=== PATIENT | female | born 1945 | race Asian ===

== ENCOUNTER 2018-08-15 15:45 | Inpatient (IN) | payer OTHER ==
[~2018-08-15] VITALS: Ht 157.5 cm; Wt 75.7 kg
[2018-08-15 15:45] VITALS: BP_SYST 143
[2018-08-15] MEDS ORDERED: MORPHINE 2 MG/ML INJ. SYRINGE IVP ONE (17:30)
[2018-08-15] MEDS ORDERED: DIPHENHYDRAMINE INJ 50 MG/ML VIAL IVP ONE (17:30)
[2018-08-15 18:04] LABS: BASOPHILS % (AUTO) 0.8 % (0.0-2.0); EOSINOPHILS # (AUTO) 0.2 K/uL (0.0-0.4); EOSINOPHILS % (AUTO) 3.9 % (0.0-4.0); HEMATOCRIT 40.3 % (36-48); HEMOGLOBIN 12.7 g/dL (12.0-16.0); LYMPHOCYTES # (AUTO) 1.5 K/uL (1.0-5.5); LYMPHOCYTES % (AUTO) 23.9 % (20.5-51.5); MEAN CORPUSCULAR HEMOGLOBIN 28 pg (27-31); MEAN CORPUSCULAR HGB CONC 32 % (32-36); MEAN CORPUSCULAR VOLUME 90 fL (79.0-98.0); MONOCYTES # (AUTO) 0.6 K/uL (0.0-1.0); MONOCYTES % (AUTO) 9.3 % (1.7-9.3); NEUTROPHILS # (AUTO) 3.8 K/uL (1.8-7.7); NEUTROPHILS % (AUTO) 62.1 % (40.0-70.0); PLATELET COUNT (AUTO) 268 K/uL (130-430); RED BLOOD CELL COUNT(AUTO) 4.47 MIL/uL (4.2-6.2); RED CELL DISTRIBUTION WIDTH 15.2 % (9.0-15.0); WHITE BLOOD COUNT (AUTO) 6.1 K/uL (4.8-10.8)
[2018-08-15 18:14] LABS: ANION GAP 11 (5-15); CALCIUM 9.2 mg/dL (8.4-11.0); CHLORIDE 103 mmol/L (98-107); CREATININE 0.87 mg/dL (0.55-1.30); GLUCOSE 96 mg/dL (70-99); POTASSIUM 4.2 mmol/L (3.5-5.1); SODIUM SERUM 136 mmol/L (136-145); UREA NITROGEN, BLOOD 12 mg/dL (8-21)
[2018-08-15 18:16] LABS: INR 1.1 (0.8-1.2); PROTHROMBIN TIME 10.8 SECS (9.5-12.5)
[2018-08-15 18:20] LABS: ALANINE AMINOTRANSFERASE 15 U/L (12-78); ALBUMIN 3.5 g/dL (3.4-4.8); ASPARTATE AMINOTRANSFERASE 20 U/L (10-37); TOTAL BILIRUBIN 0.4 mg/dL (0.0-1.0)
[2018-08-15 19:40] LABS: BILIRUBIN,URINE NEGATIVE (NEGATIVE); BLOOD, URINE NEGATIVE (NEGATIVE); CLARITY/URINE CLEAR (CLEAR); COLOR,URINE YELLOW (YELLOW); GLUCOSE,URINE NEGATIVE (NEGATIVE); KETONES,URINE NEGATIVE (NEGATIVE); NITRITE, URINE NEGATIVE (NEGATIVE); PH,URINE 6.5 (5.0-8.0); PROTEIN URINE NEGATIVE (NEGATIVE); UROBILINOGEN,URINE 0.2 (0.2-1.0)
[2018-08-15 19:47] LABS: LEUKOCYTE ESTERASE ,URINE TRACE (NEGATIVE)
[2018-08-15 19:48] LABS: BACTERIA,URINE FEW /HPF (None Seen); MUCUS,URINE None Seen /LPF (None Seen); RBC,URINE NONE SEEN /HPF (0-3)
[2018-08-15] MEDS ORDERED: AMLO5TAB4 PO (19:49)
[2018-08-15] MEDS ORDERED: SIMV20TA6 PO (19:49)
[2018-08-15] MEDS ORDERED: NAPR-688 PO (19:49)
[2018-08-15] MEDS ORDERED: METO25TA3 PO (19:49)
[2018-08-15] MEDS ORDERED: OXYC-580 PO (19:49)
[2018-08-15] MEDS ORDERED: oxyCODONE HCL 5 MG TABLET PO PRN (20:30)
[2018-08-15 21:02] VITALS: BP_SYST 129
[2018-08-15] MEDS: KCL 20 mEq in D5/0.45NS 1000mL 1,000 ML IV SCH (22:07)
[2018-08-15] MEDS: MEGESTROL ACETATE 400 MG/10 ML UDC PO SCH (22:09)
[2018-08-15] MEDS: MORPHINE 2 MG/ML INJ. SYRINGE IVP PRN (23:29)
[2018-08-16 00:54] VITALS: BP_SYST 125
[2018-08-16] MEDS: MORPHINE 2 MG/ML INJ. SYRINGE IVP PRN ×3 (05:09→16:43)
[2018-08-16] MEDS: METOPROLOL SUCCINATE 25 MG TAB.SR.24H (TOPROL XL) PO SCH (08:42)
[2018-08-16] MEDS: MEGESTROL ACETATE 400 MG/10 ML UDC PO SCH ×2 (08:42→21:02)
[2018-08-16] MEDS: amLODIPine BESYLATE 5 MG TABLET PO SCH (08:43)
[2018-08-16] MEDS: ENOXAPARIN SODIUM 40 MG/0.4 ML SYRINGE SUBCUT SCH (08:44)
[2018-08-16] MEDS ORDERED: LevALBUTEROL HCL 1.25 MG/0.5 ML *CONC.* VIAL.NEB (XOPENEX CONC.) INH ONE (09:30)
[2018-08-16 09:52] VITALS: BP_SYST 120
[2018-08-16 12:00] VITALS: BP_SYST 129
[2018-08-16] MEDS: KCL 20 mEq in D5/0.45NS 1000mL 1,000 ML IV SCH (12:30)
[2018-08-16] MEDS: LevALBUTEROL HCL 1.25 MG/0.5 ML *CONC.* VIAL.NEB (XOPENEX CONC.) INH SCH ×2 (13:38→19:28)
[2018-08-16 16:00] VITALS: BP_SYST 115
[2018-08-16] MEDS: SIMVASTATIN 20 MG TABLET PO SCH (16:43)
[2018-08-16 19:55] VITALS: BP_SYST 124
[2018-08-17] MEDS: LevALBUTEROL HCL 1.25 MG/0.5 ML *CONC.* VIAL.NEB (XOPENEX CONC.) INH SCH ×3 (01:05→19:45)
[2018-08-17] MEDS: KCL 20 mEq in D5/0.45NS 1000mL 1,000 ML IV SCH ×3 (02:14→16:36)
[2018-08-17 02:22] VITALS: BP_SYST 140
[2018-08-17] MEDS: METOPROLOL SUCCINATE 25 MG TAB.SR.24H (TOPROL XL) PO SCH (09:09)
[2018-08-17] MEDS: MEGESTROL ACETATE 400 MG/10 ML UDC PO SCH ×2 (09:09→20:07)
[2018-08-17] MEDS: amLODIPine BESYLATE 5 MG TABLET PO SCH (09:09)
[2018-08-17] MEDS: ENOXAPARIN SODIUM 40 MG/0.4 ML SYRINGE SUBCUT SCH (09:10)
[2018-08-17] MEDS: MORPHINE 2 MG/ML INJ. SYRINGE IVP PRN (09:11)
[2018-08-17 09:31] VITALS: BP_SYST 122
[2018-08-17 12:30] VITALS: BP_SYST 123
[2018-08-17 16:30] VITALS: BP_SYST 138
[2018-08-17] MEDS: SIMVASTATIN 20 MG TABLET PO SCH (16:39)
[2018-08-17 20:00] VITALS: BP_SYST 130
[2018-08-17 23:14] VITALS: BP_SYST 140
[2018-08-18] MEDS: LevALBUTEROL HCL 1.25 MG/0.5 ML *CONC.* VIAL.NEB (XOPENEX CONC.) INH SCH ×3 (00:25→13:40)
[2018-08-18 08:00] VITALS: BP_SYST 130
[2018-08-18] MEDS: MEGESTROL ACETATE 400 MG/10 ML UDC PO SCH (08:46)
[2018-08-18] MEDS: amLODIPine BESYLATE 5 MG TABLET PO SCH (08:46)
[2018-08-18] MEDS: METOPROLOL SUCCINATE 25 MG TAB.SR.24H (TOPROL XL) PO SCH (08:47)
[2018-08-18] MEDS: ENOXAPARIN SODIUM 40 MG/0.4 ML SYRINGE SUBCUT SCH (08:48)
[2018-08-18 12:00] VITALS: BP_SYST 129
[2018-08-18 16:00] VITALS: BP_SYST 130
[2018-08-18] MEDS: SIMVASTATIN 20 MG TABLET PO SCH (17:10)
[2018-08-18 17:18] VITALS: BP_SYST 130
[2018-08-18] MEDS ORDERED: PHEDM120 PO (17:18)
== END 2018-08-18 17:37 | disposition home or self-care (01) | DRG 187 ==
LOC: SED 15:45 → SMU 19:53
PROVIDERS: ADMIT Family Medicine; ATTEND Family Medicine
PROC: 0WJ93ZZ Inspection of Right Pleural Cavity, Percutaneous Approach (ICD-10-PCS; principal; 2018-08-17)
DX: J90 Pleural effusion, not elsewhere classified (principal); C18.9 Malignant neoplasm of colon, unspecified; N39.0 Urinary tract infection, site not specified; C78.00 Secondary malignant neoplasm of unspecified lung; E46 Unspecified protein-calorie malnutrition; E86.0 Dehydration; I10 Essential (primary) hypertension; Z85.038 Personal history of other malignant neoplasm of large intestine; Z90.49 Acquired absence of other specified parts of digestive tract
CPT/HCPCS: 36415; 71045; 71250-TC; 76604; 80053; 81000-TC; 82378; 83605; 83880; 84484; 85025; 85610-TC; 85730-TC; 87040-TC; 87086; 93005; 94640; 94760; 96374; 96375; 99285; J1200; J1650; J2270; J7612

== ENCOUNTER 2018-09-19 20:37 | Inpatient (IN) | payer OTHER, MEDICAID ==
[~2018-09-19] VITALS: Ht 154.9 cm; Wt 60.8 kg
[~2018-09-19 20:37] MED LIST: AMLO5TAB4 PO; METO25TA3 PO; NAPR-688 PO; OXYC-580 PO; PHEDM120 PO; SIMV20TA6 PO
[2018-09-19 20:40] VITALS: BP_SYST 151
--- NOTE | 2018-09-19 20:40 | NUR ---
Placed in room 7 . Placed on monitoring coordinator, blood pressure machine and pulse oximeter. To gown for exam. Side rails up.
--- NOTE | 2018-09-19 20:50 | NUR ---
ER Dr. Velasquez at bedside examining patient.
--- NOTE | 2018-09-19 20:53 | NUR ---
Note lora in EDM - 09/19/18 at 2157 by [id number] Patient came in complaining of shortness of breath and feeling weak. Pt's son says that his mother has stage 4 colon cancer. However, has not been able to see a primary physcian due to insurance purposes. He states that she feels like the "pain is crawling in to her bones." No other complaints/injuries noted. Will continue to monitor.
--- NOTE | 2018-09-19 20:53 | NUR ---
Patient came in complaining of shortness of breath and feeling weak. Pt's son says that his mother has stage 4 colon cancer. However, has not been able to see a primary physcian due to insurance purposes. He states that she feels like the "pain is crawling in to her bones." AOx4. Pt speaks wolof predominantly. 9/10 on the pain scale. No other complaints/injuries noted. Will continue to monitor.
[2018-09-19] MEDS ORDERED: MORPHINE 2 MG/ML INJ. SYRINGE IVP ONE (21:15)
--- NOTE | 2018-09-19 21:16 | NUR ---
Xray at bedside, pt tolerated well.
--- NOTE | 2018-09-19 21:23 | NUR ---
Medicated with morphine IVP per MD order. Patient tolerating well. Will continue to monitor.
--- NOTE | 2018-09-19 21:26 | NUR ---
Medication reconciliation completed with information provided by family. Any prior medication reconciliation on file was reviewed and corrected.
[2018-09-19 21:35] LABS: BASOPHILS # (AUTO) 0.1 K/uL (0.0-0.2); EOSINOPHILS # (AUTO) 0.3 K/uL (0.0-0.4); EOSINOPHILS % (AUTO) 3.9 % (0.0-4.0); HEMATOCRIT 39.9 % (36-48); HEMOGLOBIN 12.5 g/dL (12.0-16.0); LYMPHOCYTES # (AUTO) 1.6 K/uL (1.0-5.5); LYMPHOCYTES % (AUTO) 21.3 % (20.5-51.5); MEAN CORPUSCULAR HEMOGLOBIN 28 pg (27-31); MEAN CORPUSCULAR HGB CONC 31 % (32-36); MEAN CORPUSCULAR VOLUME 89 fL (79.0-98.0); MONOCYTES # (AUTO) 0.6 K/uL (0.0-1.0); MONOCYTES % (AUTO) 8.7 % (1.7-9.3); NEUTROPHILS # (AUTO) 4.8 K/uL (1.8-7.7); NEUTROPHILS % (AUTO) 65.1 % (40.0-70.0); PLATELET COUNT (AUTO) 289 K/uL (130-430); RED BLOOD CELL COUNT(AUTO) 4.46 MIL/uL (4.2-6.2); RED CELL DISTRIBUTION WIDTH 14.6 % (9.0-15.0); WHITE BLOOD COUNT (AUTO) 7.4 K/uL (4.8-10.8)
[2018-09-19 21:51] LABS: ANION GAP 9 (5-15); CALCIUM 9.3 mg/dL (8.4-11.0); CHLORIDE 104 mmol/L (98-107); CREATININE 1.04 mg/dL (0.55-1.30); GLUCOSE 118 mg/dL (70-99); POTASSIUM 3.9 mmol/L (3.5-5.1); SODIUM SERUM 138 mmol/L (136-145); UREA NITROGEN, BLOOD 12 mg/dL (8-21)
[2018-09-19 21:56] LABS: ALANINE AMINOTRANSFERASE 19 U/L (12-78); ALBUMIN 3.4 g/dL (3.4-4.8); ASPARTATE AMINOTRANSFERASE 20 U/L (10-37); TOTAL BILIRUBIN 0.5 mg/dL (0.0-1.0)
[2018-09-19 21:57] LABS: BILIRUBIN,URINE NEGATIVE (NEGATIVE); BLOOD, URINE NEGATIVE (NEGATIVE); CLARITY/URINE CLEAR (CLEAR); COLOR,URINE YELLOW (YELLOW); GLUCOSE,URINE NEGATIVE (NEGATIVE); KETONES,URINE NEGATIVE (NEGATIVE); LEUKOCYTE ESTERASE ,URINE NEGATIVE (NEGATIVE); NITRITE, URINE NEGATIVE (NEGATIVE); PH,URINE 6.5 (5.0-8.0); PROTEIN URINE NEGATIVE (NEGATIVE); UROBILINOGEN,URINE 0.2 (0.2-1.0)
[2018-09-19 21:59] LABS: INR 1.1 (0.8-1.2); PROTHROMBIN TIME 10.9 SECS (9.5-12.5)
[2018-09-19] MEDS ORDERED: MORPHINE 2 MG/ML INJ. SYRINGE IVP PRN (22:30)
[2018-09-19] MEDS ORDERED: LEVOFLOXACIN 500 MG/D5W 100 ML IV ONE (22:30)
[2018-09-19] MEDS ORDERED: ONDANSETRON HCL 4 MG/2 ML VIAL IVP PRN (22:30)
[2018-09-19] MEDS ORDERED: ZOLPIDEM TARTRATE 5 MG TABLET PO PRN (22:30)
[2018-09-19] MEDS ORDERED: ACETAMINOPHEN 325 MG TABLET PO PRN (22:30)
[2018-09-19] MEDS ORDERED: LORazepam 2 MG/ML VIAL IVP PRN (22:30)
[2018-09-19] MEDS ORDERED: MAGNESIUM SULFATE 50 ML IV PRN (22:30)
[2018-09-19] MEDS ORDERED: DOCUSATE SODIUM 100 MG CAPSULE PO PRN (22:30)
[2018-09-19] MEDS ORDERED: MUPIROCIN 2% TOPICAL OINTMENT 22 GM NS PRN (22:30)
--- NOTE | 2018-09-19 22:30 | NUR ---
Patient will be admitted to care of Dr. Garcia. Admitted to TELE unit. Will go to room 132-c. Belongings list completed. Summary report printed. Report will be given at bedside.
[2018-09-19 22:42] VITALS: BP_SYST 125
--- NOTE | 2018-09-19 22:42 | NUR ---
Transfer to TELE via ACLS protocol. Licensed nurse present. IV present no signs or symptoms of infiltration. Report given to TRISTON Callejas.
--- NOTE | 2018-09-19 22:42 | NUR ---
ADMISSION NOTE PATIENT RECEIVED VIA [facility] FROM AUTOMOTIVE CENTER MANAGER. PATIENT WAS ABLE TO SCOOT HERSELF FROM GURNEY TO BED WITH MODERATE ASSIST. PATIENT WILL BE ADMITTED ON TELEMETRY FLOOR, HER PRIMARY CARE PHYSICIAN WILL BE DR. NAVA. AT THIS TIME, THE PATIENT IS STABLE, NO SIGNS OF ACUTE RESPIRATORY DISTRESS. PATIENT ORIENTED TO HER ROOM, 132C, FALL AND SAFETY PRECAUTIONS ARE PUT IN PLACE. CALL LIGHT -TEACH BACK IS SUCCESSFUL. BED IS LOCKED, ALARMED, AND AT THE LOWEST LEVEL.
--- NOTE | 2018-09-20 00:35 | NUR ---
NOTE AT THIS TIME, PATIENT IS RESTING IN BED, STABLE, NO SIGNS OF RESPIRATORY DISTRESS. CALL LIGHT WITHIN REACH. BED IS LOCKED, ALARMED, AND AT THE LOWEST LEVEL.
[2018-09-20 00:58] VITALS: BP_SYST 151
[2018-09-20] MEDS ORDERED: PIPERACILLIN/TAZOBACTAM 3.375 GM/VIAL (ZOSYN) IV ONE ×2 (01:10→05:33)
[2018-09-20] MEDS: IPRATROPIUM/ALBUTEROL SULFATE 3 ML AMPUL.NEB (DUONEB) INH PRN (01:16)
[2018-09-20] MEDS: PIPERACILLIN/TAZO 3.375 GM in NS 50 ML IV SCH ×5 (01:57→23:17)
--- NOTE | 2018-09-20 02:10 | NUR ---
BLUE PHONE COMMUNICATION BLUE PHONE USED FOR COMMUNICATION AT THIS TIME, ANIMAL RESEARCHER [id number] DERECK IS THE BIG DATA HADOOP DEVELOPER AT THIS TIME. PATIENT IS ASKED IF SHE IS IN PAIN, PATIENT VERBALIZES THAT SHE IS HAVING TROUBLE PEEING, PATIENT ALSO VERBALIZED THAT IS HAVING SOME ANXIETY. BIG DATA HADOOP DEVELOPER ASKED TO EXPLAIN TO THE PATIENT THAT PRN MEDICATION FOR ANXIETY WILL BE GIVEN TO THE PATIENT, ALSO THAT A BLADDER SCAN WILL BE PERFORMED FOR THE PATIENT TO SEE SHE IS RETAINING URINE IN WHICH CASE MD WILL BE CALLED TO REQUEST FOR ORDERS. PATIENT VERBALIZES UNDERSTANDING.
--- NOTE | 2018-09-20 02:49 | NUR ---
BLADDER SCAN PERFORMED PATIENT HAS BEEN UNABLE TO PEE DESPITE TWO ATTEMPTS OF PLACING HER ON A BEDPAN. BLADDER SCAN AT THIS TIME SHOWS ">913 ML" OF URINE RETAINED. MD WILL BE PAGED IMMEDIATELY TO REQUEST FOR GABRIEL ORDERS.
--- NOTE | 2018-09-20 02:55 | NUR ---
COMMUNICATION WITH DR. BRANDY NAVA PAGED AT THIS TIME, PATIENT'S URINE RETENTION AND BLADDER SCAN PERFORMED WAS COMMUNICATED WITH THE MD. MD HAS ORDERED GABRIEL CATHETER AT THIS TIME. ORDER READ BACK, VERIFIED, AND WILL BE ENTERED. GABRIEL WILL BE PLACED IMMEDIATELY FOR PATIENT AT THIS TIME.
--- NOTE | 2018-09-20 03:12 | NUR ---
GABRIEL CATHETER PLACED AT THIS TIME, GABRIEL IS PLACED FOR PATIENT PER PROTOCOL. PATIENT TOLERATED WELL. GABRIEL CLAMPED AT 500 ML URINE DRAINED, AND RELEASED AGAIN AFTER 10 MINUTES FOR A TOTAL OUTPUT OF 650 CLEAR YELLOW URINE OUTPUT AT THIS TIME. GABRIEL IS SECURED, AND IS NOW DRAINING PER GRAVITY. PATIENT VERBALIZES RELIEF, SHE IS STABLE, NO SIGNS OF RESPIRATORY DISTRESS. SHE IS POSITIONED FOR COMFORT. CALL LIGHT WITHIN REACH. BED IS LOCKED, ALARMED, AND AT THE LOWEST LEVEL.
--- NOTE | 2018-09-20 03:51 | NUR ---
NOTE PATIENT IS SLEEPING, STABLE, NO SIGNS OF RESPIRATORY DISTRESS. CALL LIGHT IS WITHIN REACH. BED IS LOCKED, ALARMED, AND AT THE LOWEST LEVEL.
--- NOTE | 2018-09-20 04:51 | NUR ---
CONSULTATION PAGED/CALLED Reason for Consultation: COLON CANCER Person Who was Notified: JORGE Consulting Physician: DR. BURKETT; CLINICAL REHABILITATION SPECIALIST DR. WESTON Ordering Physician: DR. NAVA
--- NOTE | 2018-09-20 05:00 | NUR ---
CONSULTATION PAGED/CALLED Reason for Consultation: PNA, SOB Person Who was Notified: JORGE Consulting Physician: DR. JAIRO REAL Shank Stitcher Specialty: PULMONOLOGY Ordering Physician: DR. NAVA
--- NOTE | 2018-09-20 05:40 | NUR ---
NOTE PATIENT IS SLEEPING, STABLE, NO SIGNS OF RESPIRATORY DISTRESS. CALL LIGHT WITHIN REACH. BED IS LOCKED, ALARMED, AND AT THE LOWEST LEVEL.
[2018-09-20 05:42] LABS: BASOPHILS # (AUTO) 0.1 K/uL (0.0-0.2); EOSINOPHILS # (AUTO) 0.3 K/uL (0.0-0.4); EOSINOPHILS % (AUTO) 4.8 % (0.0-4.0); HEMATOCRIT 36.6 % (36-48); HEMOGLOBIN 11.9 g/dL (12.0-16.0); LYMPHOCYTES # (AUTO) 1.2 K/uL (1.0-5.5); LYMPHOCYTES % (AUTO) 18.2 % (20.5-51.5); MEAN CORPUSCULAR HEMOGLOBIN 29 pg (27-31); MEAN CORPUSCULAR HGB CONC 33 % (32-36); MEAN CORPUSCULAR VOLUME 90 fL (79.0-98.0); MONOCYTES # (AUTO) 0.6 K/uL (0.0-1.0); MONOCYTES % (AUTO) 9.7 % (1.7-9.3); NEUTROPHILS # (AUTO) 4.2 K/uL (1.8-7.7); NEUTROPHILS % (AUTO) 66.3 % (40.0-70.0); PLATELET COUNT (AUTO) 254 K/uL (130-430); RED BLOOD CELL COUNT(AUTO) 4.07 MIL/uL (4.2-6.2); RED CELL DISTRIBUTION WIDTH 14.1 % (9.0-15.0); WHITE BLOOD COUNT (AUTO) 6.4 K/uL (4.8-10.8)
[2018-09-20 06:01] LABS: ANION GAP 7 (5-15); CALCIUM 8.4 mg/dL (8.4-11.0); CHLORIDE 107 mmol/L (98-107); CREATININE 0.95 mg/dL (0.55-1.30); GLUCOSE 98 mg/dL (70-99); POTASSIUM 3.4 mmol/L (3.5-5.1); SODIUM SERUM 139 mmol/L (136-145); UREA NITROGEN, BLOOD 11 mg/dL (8-21)
--- NOTE | 2018-09-20 06:54 | NUR ---
CLOSING NOTE PATIENT IS SLEEPING, STABLE, NO SIGNS OF RESPIRATORY DISTRESS. CALL LIGHT WITHIN REACH. BED IS LOCKED, ALARMED, AND AT THE LOWEST LEVEL. FALL AND SAFETY PRECAUTIONS HAVE BEEN IN PLACE THROUGHOUT THE SHIFT. ALL NEEDS MET. WILL CONTINUE TO MONITOR UNTIL SHIFT REPORT IS GIVEN AT BEDSIDE TO AM NURSE.
--- NOTE | 2018-09-20 07:45 | NUR ---
INITIAL NOTE RECEIVED PATIENT FROM DIVISION TRAFFIC SUPERINTENDENT. HOB>45. PATIENT AWAKE IN BED. SPEAKS ALBANIAN; BLUE PHONE FOR TRANSLATION AT BEDSIDE. CONT ON O2@2L/M VIA NC. NO ACUTE DISTRESS. DYSPNEA ON EXERTION NOTED. SKIN WARM AND DRY TO TOUCH. IV INTACT AND PATENT. GABRIEL CATH INTACT AND PATENT DRAINING YELLOW URINE BY GRAVITY. BED IN LOW AND LOCKED POSITION. SIDERAIL UPX2. BED ALARM ON. ALL NEEDS MET. CALL LIGHT IN REACH. CONT TO MONITOR. ROOM NEAR NURSES STATION.
[2018-09-20 08:00] VITALS: BP_SYST 110
--- NOTE | 2018-09-20 08:00 | NUR ---
SEEN AND EXAMINED BY AT BEDSIDE. CHANGED MD FROM TO DUE TO FOLLOWED PATIENT BEFORE.
[2018-09-20] MEDS: POTASSIUM CHLORIDE 20 MEQ TAB.PRT.SR PO PRN (08:25)
[2018-09-20] MEDS: amLODIPine BESYLATE 5 MG TABLET PO SCH (08:25)
[2018-09-20] MEDS: HEPARIN SODIUM,PORCINE 5000 UNITS/ML VIAL SUBCUT SCH ×2 (08:30→20:05)
--- NOTE | 2018-09-20 08:30 | NUR ---
MEDS PATIENT SITTING UP HOB >45 IN BED EATING BREAKFAST. ALL DUE MEDS ADMINISTERED ORDERED, DARLEEN WELL. KDUR ADMINISTERED ORDERED DUE TO POTASSIUM <3.5. PATIENT DARLEEN WELL. NO COUGHING NOTED. SON AT BEDSIDE. CONT TO MONITOR. CALL LIGHT IN REACH.
[2018-09-20] MEDS: FUROSEMIDE 40 MG/4 ML VIAL IVP SCH (08:33)
--- NOTE | 2018-09-20 08:52 | NUR ---
CONSULTATION called for colon cancer spoke with Natalie.
--- NOTE | 2018-09-20 10:30 | NUR ---
NOTE PATIENT RESTING IN BED EASILY AROUSABLE. NO ACUTE DISTRESS. NO SOB. SKIN WARM AND DRY TO TOUCH. CALL NEEDS MET. CONT TO MONITOR
[2018-09-20 11:23] VITALS: BP_SYST 118
--- NOTE | 2018-09-20 11:35 | NUR ---
Nutrition Update Ron Scale 16 noted. Pt admitted for aspiration pneumonia. Diet: cardiac BMI: 25.5 kg/m2 RD to follow per nutrition care standards.
--- NOTE | 2018-09-20 12:50 | NUR ---
SEEN AND EXAMINED BY AT BEDSIDE. CONT TO MONITOR
--- NOTE | 2018-09-20 13:40 | NUR ---
OFF UNIT PATIENT TAKEN OF UNIT VIA GURNEY TO RADIOLOGY FOR CT SCAN. PATIENT STABLE.
--- NOTE | 2018-09-20 14:05 | NUR ---
ON UNIT PATIENT RETURNED FROM RADIOLOGY. VITAL SIGN STABLE. NOTED PATIENT GRIMACING; WILL ADMINISTER PAIN MEDICATION. CONT TO MONITOR
[2018-09-20] MEDS: MORPHINE 2 MG/ML INJ. SYRINGE IVP PRN ×2 (14:15→20:06)
--- NOTE | 2018-09-20 14:15 | NUR ---
pain NOTED FACIAL GRIMACING AND WHIMPERING. NOTED PATIENT GRABBING ABDOMEN. ASKED PATIENT IF SHE WAS IN PAIN AT ABDOMEN AND PATIENT NODDED YES. MORPHINE 2MG ADMINISTERED FOR ABDOMINAL PAIN, DARLEEN WELL. REPOSITIONED FOR COMFORT. ALL NEEDS MET. CONT TO MONITOR.
[2018-09-20 15:25] VITALS: BP_SYST 133
--- NOTE | 2018-09-20 16:00 | NUR ---
NOTE PATIENT IN BED. HOB>30. PATIENT ON CELL PHONE. ALL NEEDS MET. CONT TO MONITOR WITH FREQUENT VISUAL CHECKS
--- NOTE | 2018-09-20 17:25 | NUR ---
IV ZOSYN ADMINISTERED IV ZOSYN ORDERED, DARLEEN WELL. NO S/SX ASE NOTED. PATIENT SITTING UP IN BED USING CELL PHONE. ASKED PATIENT IF SHE HAD PAIN; PATIENT SHOOK HER HEAD "NO". ALL NEEDS MET. CALL LIGHT IN REACH. CONT TO MONITOR WITH FREQUENT VISUAL CHECKS.
--- NOTE | 2018-09-20 18:40 | NUR ---
CLOSING NOTE PATIENT AWAKE IN BED. NO S/SX PAIN. NO ACUTE DISTRESS. NO SOB. RESP EVEN AND UNLABORED. SKIN WARM AND DRY TO TOUCH. IV TO LEFT HAND INTACT AND PATENT. PATIENT ASKED TO CLOSE BLINDS TO WINDOW AND FOR ANOTHER BLANKET. ALL NEEDS MET. CALL LIGHT IN REACH. CONT TO MONITOR. ROOM NEAR NURSES STATION. WILL ENDORSE TO ONCOMING SHIFT.
[2018-09-20 20:00] VITALS: BP_SYST 123
--- NOTE | 2018-09-20 20:00 | NUR ---
Initial Notes Received patient resting in bed, awake, alert, oriented, family at bedside. Patient is Syriac speaking. Patient denies any acute distress at this time. Vital signs stable. Breathing is even and unlabored on 2L NC. IV site patent/clean/dry. Needs addressed. Educated patient/family regarding use of call light for assistance and fall precautions, patient/family verbalized understanding. Call light in hand, will continue to monitor.
[2018-09-20] MEDS: PROMETHAZINE-DM 6.25 MG-15 MG/5 ML UDC PO PRN (21:39)
--- NOTE | 2018-09-20 22:00 | NUR ---
Nursing Notes Patient resting in bed, awake. Patient denies any acute distress at this time. Breathing is even and unlabored. Medicated patient for cough per MD order. Needs addressed. Call light in hand, fall precautions in place.
[2018-09-21] VITALS: BP_SYST 126
--- NOTE | 2018-09-21 00:15 | NUR ---
Nursing Notes Patient resting in bed with eyes closed. No acute distress noted, breathing is even and unlabored. IV site patent/clean/dry. Chairez draining to gravity. Call light in hand, fall precautions in place.
--- NOTE | 2018-09-21 02:00 | NUR ---
Nursing Notes Patient resting in bed with eyes closed. No distress noted. Breathing is even and unlabored. Chairez draining to gravity. Will continue to monitor.
--- NOTE | 2018-09-21 04:39 | NUR ---
Nursing Notes Patient resting in bed with eyes closed. No acute distress noted, breathing is even and unlabored. Chairez draining to gravity. Call light in hand, fall precautions in place. Will continue to monitor for changes and safety.
[2018-09-21] MEDS: PIPERACILLIN/TAZO 3.375 GM in NS 50 ML IV SCH ×3 (05:29→17:21)
[2018-09-21 06:41] LABS: BASOPHILS # (AUTO) 0.1 K/uL (0.0-0.2); BASOPHILS % (AUTO) 0.9 % (0.0-2.0); EOSINOPHILS # (AUTO) 0.4 K/uL (0.0-0.4); EOSINOPHILS % (AUTO) 5.3 % (0.0-4.0); HEMATOCRIT 38.1 % (36-48); HEMOGLOBIN 12.2 g/dL (12.0-16.0); LYMPHOCYTES # (AUTO) 1.4 K/uL (1.0-5.5); LYMPHOCYTES % (AUTO) 19.4 % (20.5-51.5); MEAN CORPUSCULAR HEMOGLOBIN 29 pg (27-31); MEAN CORPUSCULAR HGB CONC 32 % (32-36); MEAN CORPUSCULAR VOLUME 91 fL (79.0-98.0); MONOCYTES # (AUTO) 0.6 K/uL (0.0-1.0); MONOCYTES % (AUTO) 8.6 % (1.7-9.3); NEUTROPHILS # (AUTO) 4.5 K/uL (1.8-7.7); NEUTROPHILS % (AUTO) 65.8 % (40.0-70.0); PLATELET COUNT (AUTO) 255 K/uL (130-430); RED BLOOD CELL COUNT(AUTO) 4.19 MIL/uL (4.2-6.2); RED CELL DISTRIBUTION WIDTH 14.5 % (9.0-15.0)
--- NOTE | 2018-09-21 06:52 | NUR ---
Closing Notes Patient resting in bed with eyes closed, easily aroused. Patient denies any acute distress at this time. Breathing is even and unlabored. IV site patent/clean/dry, no S/S infection/infiltration noted. Chairez draining yellow urine to gravity. Needs addressed throughout shift. Call light in hand, fall precautions in place. Will continue to monitor for changes and safety, and endorse all patient care/needs to oncoming nurse.
[2018-09-21 07:22] LABS: ANION GAP 8 (5-15); CALCIUM 8.3 mg/dL (8.4-11.0); CHLORIDE 106 mmol/L (98-107); GLUCOSE 98 mg/dL (70-99); POTASSIUM 3.7 mmol/L (3.5-5.1); SODIUM SERUM 136 mmol/L (136-145)
[2018-09-21 07:23] LABS: CREATININE 1.18 mg/dL (0.55-1.30); UREA NITROGEN, BLOOD 16 mg/dL (8-21)
[2018-09-21 08:00] VITALS: BP_SYST 144
--- NOTE | 2018-09-21 08:00 | NUR ---
initial notes rec patient awake alert but speaks [place] citizen only. resp easy and unlabored. no acute distress noted. noted with facial droop on the r side. bed in low position and side rails yp and locked. call light within reached and knows when to call for assistance. dr mix at bedside.
--- NOTE | 2018-09-21 10:04 | NUR ---
S.T. SWALLOW EVAL COMPLETED. PT PRESENTS W/ ML-MOD ORAL DYSPHAGIA W/ PROLONGED MASTICATION. SWALLOW IS TIMELY W/ NO S/S OF ASPIRATION. HOWEVER, PT'S GROANING OF PAIN AND LABOR OF BREATHING PUT HER AT RISK FOR ASPIRATION. REC: [facility] SOFT CHOPPED DIET. THIN LIQUIDS OK. DR. NAVA AND NURSE RUBY AWARE OF PAIN. NURSE BELTRAN AND DR. REAL NOTIFIED OF RESULTS AND REC. [id number] CJ G8997 CJ [id number] NOMS LEVEL 5
[2018-09-21] MEDS: MORPHINE 2 MG/ML INJ. SYRINGE IVP PRN ×2 (10:05→18:40)
[2018-09-21] MEDS: FUROSEMIDE 40 MG/4 ML VIAL IVP SCH (10:06)
[2018-09-21 10:11] LABS: AMYLASE 77 U/L (0-100); LIPASE 207 U/L (73-393)
[2018-09-21] MEDS: amLODIPine BESYLATE 5 MG TABLET PO SCH (10:18)
[2018-09-21] MEDS: HEPARIN SODIUM,PORCINE 5000 UNITS/ML VIAL SUBCUT SCH ×2 (10:22→21:59)
--- NOTE | 2018-09-21 10:30 | NUR ---
rounds due meds were given and shoshana well. no acute distress noted. call light within reached.
[2018-09-21 11:10] VITALS: BP_SYST 129
--- NOTE | 2018-09-21 12:00 | NUR ---
rounds sleeping at intervals. call light within reached and knows when to call for help.
--- NOTE | 2018-09-21 14:00 | NUR ---
rounds seen by dr chu . sleeps at intervals.
[2018-09-21 15:07] VITALS: BP_SYST 117
--- NOTE | 2018-09-21 16:00 | NUR ---
rounds sleeps at intervals. call light within reached. no sob noted.
--- NOTE | 2018-09-21 18:40 | NUR ---
closing notes pt was moaning and was medicated with morphine 2 mg iv prn for pain. no acute distress and medicated for pain. call light withn reached. son at bedside with patient.
--- NOTE | 2018-09-21 19:10 | NUR ---
initial notes: pt is on bed, awake, alert, oriented x 3. no pain, stable. son at bedside interpret because pt is [place] speaking. iv lock to left hand gauge 22-intact and patent. pt has yates catheter draining to clear yellow urine, below the body. discuss pt poc to son and he interpreted to his mother. they verbalized understanding. needs attended. call light in reach. side rails up. lowest bed position. will monitor.
[2018-09-21 20:26] VITALS: BP_SYST 117
--- NOTE | 2018-09-21 22:00 | NUR ---
notes: pt is resting. no sign of pain. not distress. no sob. stable. check needs this time. thing are in reach. call light in reach. side rails up.low bed positin. bed alarm on. will monitor.
[2018-09-22] MEDS: PIPERACILLIN/TAZO 3.375 GM in NS 50 ML IV SCH ×5 (00:15→23:25)
--- NOTE | 2018-09-22 00:34 | NUR ---
notes: pt i s resting. no sob. not distress. pt wakes up when iv antibiotic. needs attended. call light in reach. bed alarm on. will monitor.
--- NOTE | 2018-09-22 00:49 | NUR ---
talk to pt thru [employer] phone. pt complain she can not sleep. no pain. offer sleeping pills. pt agrees. explain safety. pt agress. needs attended,call light in reach. will monitor.
[2018-09-22 02:11] VITALS: BP_SYST 119
--- NOTE | 2018-09-22 02:27 | NUR ---
pt is sleeping. no sob. note distress. stable. yates catheter is intact. iv site is cdi. side rails up. call light in reach. endorsed care to ariela ritchie.
--- NOTE | 2018-09-22 02:40 | NUR ---
RN Note Patient sleeping at this time. No SOB or grimacing noted. F/C intact and draining well.
--- NOTE | 2018-09-22 05:10 | NUR ---
RN Note Asleep but arousable. No complaints at this time. IV antibiotic given. Repositioned. Kept warm and comfortable.
--- NOTE | 2018-09-22 06:27 | NUR ---
End Note Afebrile. No changes from previous assessment. No complain of pain, SOB or n/v. IV antibiotic given as scheduled. On O2 at 2L/min via NC. AM labs, CXR and CT of Brain w/o contrast today. Bleeding and fall precaution observed. Care and monitoring provided per protocol. Needs attended. Call light within reach. Bed alarm on and at lowest position at all times. NSR with PVC's on monitor. Kept warm and comfortable.
[2018-09-22 06:46] LABS: ANION GAP 10 (5-15); CALCIUM 8.7 mg/dL (8.4-11.0); CHLORIDE 104 mmol/L (98-107); CREATININE 1.22 mg/dL (0.55-1.30); GLUCOSE 97 mg/dL (70-99); POTASSIUM 3.4 mmol/L (3.5-5.1); SODIUM SERUM 138 mmol/L (136-145); UREA NITROGEN, BLOOD 19 mg/dL (8-21)
[2018-09-22 06:55] LABS: BASOPHILS % (AUTO) 0.6 % (0.0-2.0); EOSINOPHILS # (AUTO) 0.4 K/uL (0.0-0.4); EOSINOPHILS % (AUTO) 6.7 % (0.0-4.0); HEMATOCRIT 37.5 % (36-48); HEMOGLOBIN 12.1 g/dL (12.0-16.0); LYMPHOCYTES # (AUTO) 1.2 K/uL (1.0-5.5); LYMPHOCYTES % (AUTO) 18.4 % (20.5-51.5); MEAN CORPUSCULAR HEMOGLOBIN 29 pg (27-31); MEAN CORPUSCULAR HGB CONC 32 % (32-36); MEAN CORPUSCULAR VOLUME 89 fL (79.0-98.0); MONOCYTES # (AUTO) 0.6 K/uL (0.0-1.0); MONOCYTES % (AUTO) 8.7 % (1.7-9.3); NEUTROPHILS # (AUTO) 4.4 K/uL (1.8-7.7); NEUTROPHILS % (AUTO) 65.6 % (40.0-70.0); PLATELET COUNT (AUTO) 243 K/uL (130-430); RED BLOOD CELL COUNT(AUTO) 4.21 MIL/uL (4.2-6.2); RED CELL DISTRIBUTION WIDTH 14.9 % (9.0-15.0); WHITE BLOOD COUNT (AUTO) 6.6 K/uL (4.8-10.8)
[2018-09-22 07:58] VITALS: BP_SYST 133
--- NOTE | 2018-09-22 08:00 | NUR ---
initial notes rec patient awake alert hob slightly elevated. ivl on the l hand intact. no infiltration noted. speaks sammarinese only. resp easy and unlabored. no acute distress noted. bed in low position and side rails up and locked. call light within reached and knows when to call for assists suing sign language. will continue to monitor patient.
[2018-09-22] MEDS: MORPHINE 2 MG/ML INJ. SYRINGE IVP PRN ×2 (09:45→16:26)
[2018-09-22] MEDS: FUROSEMIDE 40 MG/4 ML VIAL IVP SCH (09:49)
[2018-09-22] MEDS: amLODIPine BESYLATE 5 MG TABLET PO SCH (09:49)
--- NOTE | 2018-09-22 10:01 | NUR ---
rounds seen by dr reilly and ordered paracentesis. spoke with pt's son re consent and agreed. will not give norvasc and heparin for now and wail till procedure is over. mophine 2 mg ivp was given for pain. Addendum: 09/22/18 at 1230 by Jane Fuentes RN thoracentesis and not para.
--- NOTE | 2018-09-22 10:30 | NUR ---
rounds thoracentesis attempted but not enough fluid . dr mix aware and talk to pt's son over the phone.
[2018-09-22] MEDS: HYDROcodone/ACETAMIN 5-325 MG TAB (NORCO/ VICODIN) PO SCH ×2 (10:45→20:34)
[2018-09-22 11:18] VITALS: BP_SYST 115
--- NOTE | 2018-09-22 11:49 | NUR ---
DC PLANNING Order for dc planning SNF. 1135: Pt Bulgarian speaking spoke w pt via blue electric power machine operator ph, electric power machine operator [facility] #[id number]. Pt informed of order, states to call & speak w ronen Paniagua. Called & spoke w son Siva Hernandez(German speaking), ph [phone], & discussed dc planning. States that he already discussed w Dr Garcia & told him did not want SNF. States his , pt's dtr in law, is home to assist her & does not want SNF. Informed, estelita Stovall emergency planner.
--- NOTE | 2018-09-22 12:00 | NUR ---
rounds eating lunch , denies pain and resting comfortably . call light within reached and no acute ditress noted.
[2018-09-22] MEDS: HEPARIN SODIUM,PORCINE 5000 UNITS/ML VIAL SUBCUT SCH ×2 (12:39→21:01)
[2018-09-22] MEDS: POTASSIUM CHLORIDE 20 MEQ TAB.PRT.SR PO PRN (14:06)
--- NOTE | 2018-09-22 14:13 | NUR ---
rounds 40m meq k was given for k level of 3.4. call light within reached.
--- NOTE | 2018-09-22 16:30 | NUR ---
rounds son at bedside and visited patient. no acute distress noted. call light within reached.
[2018-09-22 17:09] VITALS: BP_SYST 118
--- NOTE | 2018-09-22 19:00 | NUR ---
closing notes resign quietly at this time. denies pain at this time.. bed in low position and side rails up and locked. call light within reached and patient close to the the nurses station.
--- NOTE | 2018-09-22 19:30 | NUR ---
SHIFT ASSESSMENT Received report from AM shift RN. Pt in bed [id number] slovak speaking as primary langauage and able to understand basic hungarian. No acute distress at this time. VSS with 2L nasal cannula tolerating well with no shortness of breath noted. IV on LH 22g patent with no redness or infiltration noted. Chairez catheter in placed draining to gravity. Safety precaution observed, call light within reach. Will continue to monitor Pt.
[2018-09-22 20:00] VITALS: BP_SYST 96
[2018-09-22] MEDS ORDERED: PROMETHAZINE 6.25 MG/ CODEINE 10 MG/ 5 ML ONE (20:54)
[2018-09-22] MEDS: PROMETHAZINE-DM 6.25 MG-15 MG/5 ML UDC PO PRN (20:55)
--- NOTE | 2018-09-23 | NUR ---
FUSING MACHINE OPERATOR Pt in bed sleeping, no acute distress at this time. Will continue to monitor Pt.
[2018-09-23 00:06] VITALS: BP_SYST 115
--- NOTE | 2018-09-23 04:00 | NUR ---
DIGITAL IMAGER Pt in bed sleeping, no acute distress at this time. Will continue to monitor Pt.
[2018-09-23] MEDS: PIPERACILLIN/TAZO 3.375 GM in NS 50 ML IV SCH ×3 (05:08→19:04)
--- NOTE | 2018-09-23 06:10 | NUR ---
CLOSING NOTES Pt in bed with no acute distress at this time. Skin intact, IV line secured, Safety precaution observed. Will give report to oncoming RN via SBAR.
[2018-09-23 08:00] VITALS: BP_SYST 133
--- NOTE | 2018-09-23 08:00 | NUR ---
initial notes rec patient awake alert but speaks vienamese only. ivl l hand intact. no infiltration noted. resp easy and unlabored. no sob noted. call light within reached and knows when to call for assistance. fall/ safety precaution observed.
--- NOTE | 2018-09-23 09:39 | NUR ---
rounds seen by a lady baker covering for dr mix. due meds given as ordered.
[2018-09-23] MEDS: HYDROcodone/ACETAMIN 5-325 MG TAB (NORCO/ VICODIN) PO SCH ×3 (09:45→19:04)
[2018-09-23] MEDS: amLODIPine BESYLATE 5 MG TABLET PO SCH (09:48)
[2018-09-23] MEDS: FUROSEMIDE 40 MG/4 ML VIAL IVP SCH (09:49)
[2018-09-23] MEDS: HEPARIN SODIUM,PORCINE 5000 UNITS/ML VIAL SUBCUT SCH ×2 (10:09→20:30)
[2018-09-23 10:21] VITALS: BP_SYST 136
--- NOTE | 2018-09-23 10:30 | NUR ---
rounds due meds given and tolerated. pt close to the nurses station. no sob noted.
[2018-09-23 12:00] VITALS: BP_SYST 112
--- NOTE | 2018-09-23 12:00 | NUR ---
rounds hob slightly elevated and eating lunch. no sob noted.
[2018-09-23 13:59] LABS: BASOPHILS # (AUTO) 0.1 K/uL (0.0-0.2); EOSINOPHILS # (AUTO) 0.3 K/uL (0.0-0.4); EOSINOPHILS % (AUTO) 3.6 % (0.0-4.0); HEMOGLOBIN 13.3 g/dL (12.0-16.0); LYMPHOCYTES # (AUTO) 1.3 K/uL (1.0-5.5); LYMPHOCYTES % (AUTO) 18.3 % (20.5-51.5); MEAN CORPUSCULAR HEMOGLOBIN 29 pg (27-31); MEAN CORPUSCULAR HGB CONC 32 % (32-36); MEAN CORPUSCULAR VOLUME 91 fL (79.0-98.0); MONOCYTES # (AUTO) 0.5 K/uL (0.0-1.0); NEUTROPHILS % (AUTO) 70.1 % (40.0-70.0); PLATELET COUNT (AUTO) 267 K/uL (130-430); RED BLOOD CELL COUNT(AUTO) 4.62 MIL/uL (4.2-6.2); RED CELL DISTRIBUTION WIDTH 14.6 % (9.0-15.0); WHITE BLOOD COUNT (AUTO) 7.2 K/uL (4.8-10.8)
[2018-09-23 14:20] LABS: ANION GAP 10 (5-15); CALCIUM 8.7 mg/dL (8.4-11.0); CHLORIDE 103 mmol/L (98-107); CREATININE 1.29 mg/dL (0.55-1.30); GLUCOSE 133 mg/dL (70-99); POTASSIUM 3.4 mmol/L (3.5-5.1); SODIUM SERUM 137 mmol/L (136-145); UREA NITROGEN, BLOOD 17 mg/dL (8-21)
[2018-09-23 16:00] VITALS: BP_SYST 118
--- NOTE | 2018-09-23 16:00 | NUR ---
rounds sleeps at intervals. call light within reached.
--- NOTE | 2018-09-23 19:00 | NUR ---
closing notes assiste dto the br and shoshana well. had a bowel movement using the front wheel walker. no sob noted.endorsed to night nurse george that per p.t patient will benefit from front wheel walker. pt son at bedside and a lady from hospice came and spoke with son, agreeing for home hospice. stated will be back in am. stated she spoke with dr farrar and will order home hospice but not ordered at this time.
--- NOTE | 2018-09-23 19:39 | NUR ---
OPENING NOTE Patient resting in the bed. No acute distress. Respiration even and unlabored. On O2 2L/min via NC. Skin warm and dry to touch. IV intact to left hand, no redness, no swelling, no drainage, infusing Zosyn at this time. Discussed safety issue, use call light when need help, and plan of care, verbally understanding. F/C intact, drain gravity with yellow urine. Safety measure maintained. Call light within reached. Bed locked in low position, side rails up, bed alarm on. Will continue to monitor.
[2018-09-23 20:00] VITALS: BP_SYST 101
--- NOTE | 2018-09-23 21:57 | NUR ---
ROUND Patient resting in the bed with eyes closed. No acute distress. Respiration even and unlabored. Continue on O2 via NC. F/C intact, drain gravity with yellow urine. Safety measure maintained. Bed locked in low position, side rails up, bed alarm on. Call light within reached. Continue to monitor.
--- NOTE | 2018-09-23 23:43 | NUR ---
ROUND Patient resting in the bed with eyes closed. No acute distress. Respiration even and unlabored. Continue on O2 via NC. F/C intact, drain gravity with yellow urine. Safety measure maintained. Call light within reached. Bed locked in low position, side rails up, bed alarm on. Continue to monitor.
[2018-09-24] MEDS: HYDROcodone/ACETAMIN 5-325 MG TAB (NORCO/ VICODIN) PO SCH ×4 (00:31→17:53)
[2018-09-24] MEDS: PIPERACILLIN/TAZO 3.375 GM in NS 50 ML IV SCH ×5 (00:32→23:20)
[2018-09-24 01:04] VITALS: BP_SYST 117
[2018-09-24] MEDS: POTASSIUM CHLORIDE 20 MEQ TAB.PRT.SR PO PRN (02:54)
--- NOTE | 2018-09-24 03:00 | NUR ---
POTASSIUM CHLORIDE GIVEN Potassium Chloride 40mEq PO given as PRN ordered for K=3.4 on 09/23/18.
--- NOTE | 2018-09-24 04:45 | NUR ---
ROUND Patient resting in the bed with eyes closed. No acute distress. Respiration even and unlabored. Continue on O2 2L/min via NC. F/C intact, drain gravity. Safety measure maintained. Call light within reached. Bed locked in low position, side rails up, bed alarm on. Continue to monitor.
[2018-09-24 06:24] LABS: BASOPHILS # (AUTO) 0.1 K/uL (0.0-0.2); BASOPHILS % (AUTO) 0.9 % (0.0-2.0); EOSINOPHILS # (AUTO) 0.4 K/uL (0.0-0.4); EOSINOPHILS % (AUTO) 6.6 % (0.0-4.0); HEMATOCRIT 40.1 % (36-48); HEMOGLOBIN 12.6 g/dL (12.0-16.0); LYMPHOCYTES # (AUTO) 1.3 K/uL (1.0-5.5); LYMPHOCYTES % (AUTO) 19.6 % (20.5-51.5); MEAN CORPUSCULAR HEMOGLOBIN 29 pg (27-31); MEAN CORPUSCULAR HGB CONC 32 % (32-36); MEAN CORPUSCULAR VOLUME 91 fL (79.0-98.0); MONOCYTES # (AUTO) 0.7 K/uL (0.0-1.0); MONOCYTES % (AUTO) 10.3 % (1.7-9.3); NEUTROPHILS # (AUTO) 4.1 K/uL (1.8-7.7); NEUTROPHILS % (AUTO) 62.6 % (40.0-70.0); PLATELET COUNT (AUTO) 255 K/uL (130-430); RED CELL DISTRIBUTION WIDTH 14.6 % (9.0-15.0); WHITE BLOOD COUNT (AUTO) 6.6 K/uL (4.8-10.8)
[2018-09-24 06:39] LABS: ANION GAP 7 (5-15); CHLORIDE 102 mmol/L (98-107); CREATININE 1.22 mg/dL (0.55-1.30); GLUCOSE 96 mg/dL (70-99); POTASSIUM 4.3 mmol/L (3.5-5.1); SODIUM SERUM 135 mmol/L (136-145); UREA NITROGEN, BLOOD 18 mg/dL (8-21)
--- NOTE | 2018-09-24 06:57 | NUR ---
CLOSING NOTE Patient resting in the bed. No acute distress. Respiration even and unlabored. Continue on O2 2L/min via NC. Skin warm and dry to touch. IV intact to left hand, no redness, no swelling, no drainage, infusing Zosyn at this time. F/C intact, drain gravity with yellow urine. All needs met. Hourly rounding during shift. Safety measure maintained. Call light within reached. Bed locked in low position, side rails up, bed alarm on. Will endorse to morning shift nurse.
--- NOTE | 2018-09-24 08:00 | NUR ---
Opening notes, Patient resting in the bed. No acute distress. Respiration even and unlabored. On O2 2L/min via NC. Skin warm and dry to touch. IV intact to left hand, no redness, no swelling, no drainage. F/C intact, drain gravity with yellow urine. Safety measure maintained. Call light within reached. Bed locked in low position, side rails up, bed alarm on. Encouraged to call for assist. pt's son at bedside doing the translation.
[2018-09-24] MEDS: amLODIPine BESYLATE 5 MG TABLET PO SCH (08:44)
[2018-09-24] MEDS: HEPARIN SODIUM,PORCINE 5000 UNITS/ML VIAL SUBCUT SCH ×2 (08:52→21:24)
--- NOTE | 2018-09-24 10:00 | NUR ---
Patient in bed, no c/o pain. no sob, no resp distress. safety precaution in place. will cont to monitor.
[2018-09-24 12:00] VITALS: BP_SYST 121
--- NOTE | 2018-09-24 12:30 | NUR ---
Patient in bed, no c/o of pain. no sob, no resp distress. call light in reach. bed in low position. will cont to monitor.
[2018-09-24 16:00] VITALS: BP_SYST 117
--- NOTE | 2018-09-24 16:37 | NUR ---
Dietitian Recommendations * Recommend cardiac diet w/ Ensure Enlive BID (oral supplement provides an additional 700 kcal/day and 40 gm protein/day) LP, RD Please refer to Nutrition Assessment for details.
--- NOTE | 2018-09-24 19:20 | NUR ---
CLOSING NOTES, ENDORSED PATIENT TO [facility]. PT HAS BEEN STABLE THE WHOLE DAY, NO C/O PAIN. SCHEDULED PAIN MEDS GIVEN. INFORMED [facility]ST[facility] PLAZA THAT PT TAKE OFF HER O2 PER NC AND SOME PT IS SOB. IV SL ON LEFT HAND INTACT AND PATENT. ALL PO AND IV MEDICATIONS OFFERED AND TAKEN BY PT. GABRIEL INTACT AND PATENT.
--- NOTE | 2018-09-24 19:30 | NUR ---
CHANGE OF SHIFT; pt. just finished eating her dinner, sitting at the edge of the bed, pt. speaks little Georgian and Danish. pt. awake, alert, denies any discomfort. IV lock on left hand, yates cath to OSD. call light within reach.
[2018-09-24 20:00] VITALS: BP_SYST 117
--- NOTE | 2018-09-24 20:00 | NUR ---
NOTES: VS checked. O2 @ 2l/nc. with extended tubing.no complaints manifested. for further assist. call light within reach.
--- NOTE | 2018-09-24 20:32 | NUR ---
NOTES: pt. transferred to room 114 A via wheelchair, close to nurses station.
--- NOTE | 2018-09-24 21:00 | NUR ---
NOTES: zeroed in the bed, pt. help to get up and back to bed comfortably.
--- NOTE | 2018-09-24 22:29 | NUR ---
NOTES: pt. sleeping when checked, on semi fowlers position.
[2018-09-24] MEDS: MORPHINE 2 MG/ML INJ. SYRINGE IVP PRN (23:18)
--- NOTE | 2018-09-24 23:20 | NUR ---
NOTES: pt. woke up on a sitting position gesturing about pain on her front chest and back and gesturing injection. pt. medicated with Morphine IV as ordered with 2 mg. IV site flushed and also IV antibiotic due started. cardiac pattern on sinus rhythm.
[2018-09-25] VITALS (7 sets, daily range): BP systolic 114–128
--- NOTE | 2018-09-25 01:01 | NUR ---
NOTES: pt. sleeping when checked. condition guarded. cardia pattern unchanged.
--- NOTE | 2018-09-25 03:11 | NUR ---
NOTES: pt. awakened to change battery for the monitor but went back to sleep right away. O2 kept@ 2l/nc. fall precautions observed.
[2018-09-25] MEDS: PIPERACILLIN/TAZO 3.375 GM in NS 50 ML IV SCH ×3 (05:05→17:32)
--- NOTE | 2018-09-25 05:09 | NUR ---
NOTES: pt. still asleep. in no acute distress. repositioned self. safety measures observed.
--- NOTE | 2018-09-25 06:15 | NUR ---
NOTES: pt. awakened for meds due. pt. needs attended. went back to sleep and repositioned.
[2018-09-25] MEDS: HYDROcodone/ACETAMIN 5-325 MG TAB (NORCO/ VICODIN) PO SCH ×4 (06:26→17:33)
--- NOTE | 2018-09-25 06:58 | NUR ---
CLOSING NOTES; PT. REMAIN SLEEPING IN NO ACUTE DISTRESS. FALL PRECAUTIONS OBSERVED, BED ALARM ON. FOR FURTHER CARE AND ASSISTANCE.
--- NOTE | 2018-09-25 07:30 | NUR ---
INITIAL NOTE PT LAYING TO SIDE, RESTING, EYES CLOSED, EVEN RISE AND FALL OF CHEST NOTED, NASAL CANULA IN PLACE. REPORT RECEIVED AT BEDSIDE. WILL FOLLOW UP
--- NOTE | 2018-09-25 07:33 | NUR ---
endorsed to incoming shift with nurse Francheska pt. still sleeping.
[2018-09-25] MEDS: amLODIPine BESYLATE 5 MG TABLET PO SCH (08:30)
--- NOTE | 2018-09-25 08:30 | NUR ---
PAIN MANAGEMENT/ ASSESSMENT PT C/O PAIN 03/03 TO RIGHT SHOULDER, ABD. GIVEN PRN PAIN MANAGEMENT. IV TO LEFT HAND INTACT, SALINE LOCKED. PT FINISHED EATING BREAKFAST. PT AWARE TO CALL FOR ASSISTANCE WHEN GETTING OUT OF BED, CALL LIGHT WITHIN REACH, WILL MONITOR PT CLOSELY
[2018-09-25] MEDS: HEPARIN SODIUM,PORCINE 5000 UNITS/ML VIAL SUBCUT SCH ×2 (08:35→21:10)
--- NOTE | 2018-09-25 09:22 | NUR ---
PT SEEN WALKING AROUND NURSING STATION WITH PHYSICAL THERAPY.
--- NOTE | 2018-09-25 10:31 | NUR ---
10:[address] MOISE WHILE ROUNDING FOR CLEARANCE FOR PT TO BE DISCHARGED, PT FAMILY REQUESTING CLEARANCE FROM DR MOISE. 10:30 DR MOISE CALLED STATED PT CLEARED FOR DISCHARGE, PT TO FOLLOW UP WITH HIM OUTPATIENT. MD PROVIDED WITH SONS CALL BACK NUMBER [phone], TO UPDATE SON PER FAMILY REQUEST. 10:[address] MUNOZ TO MAKE AWARE PT CLEARED BY DR MOISE FOR DISCHARGE AND MD TO CALL SON TO DISCUS F/U OUTPATIENT. DR MUNOZ STATED SHE WOULD PUT IN ALL NECESSARY DISCHARGE ORDERS.
--- NOTE | 2018-09-25 11:26 | NUR ---
MED PASS/ROUNDS PT LAYING TO SIDE OF BED, FACIAL GRIMACING NOTED. PT STATES SHE STILL HAS MIDSTERNAL CHEST PAIN, 03/03. ADMINISTERED SCHEDULED PAIN MANAGEMENT, IF INSUFFICIENT WILL F/U WITH PRN IV PAIN MEDICATION. IV SITE RE-SECURED WITH CLEAR DRESSING. IV SITE INTACT, NO S/S OF INFILTRATION NOTED. IV ANTIBIOTIC INFUSING.
--- NOTE | 2018-09-25 12:11 | NUR ---
SPOKE WITH SON MIN, MADE AWARE OF MD PLAN FOR DISCHARGE TODAY, SON STATED HE WOULD FEEL BETTER WITH DISCHARGE TOMORROW DUE TO HIS CONVERSATION WITH DR MOISE, DR MOISE TOLD HIM HE WANTED TO SEE PATIENT ONE MORE TIME BEFORE DC AND REVIEW PAPERWORK SENT FROM [place]. DR MUNOZ MADE AWARE, MD AGREES. DISCHARGE CANCELLED.
--- NOTE | 2018-09-25 13:35 | NUR ---
ROUNDS PT LAYING TO SIDE IN BED, EYES CLOSED, EVEN RISE AND FALL OF CHEST NOTED, NASAL CANULA IN PLACE, NO FACIAL GRIMACING DURING SLEEP. APPEARS CALM. CALL LIGHT WITHIN REACH, SAFETY PRECAUTIONS IN PLACE, WILL CONTINUE TO MONITOR PT.
--- NOTE | 2018-09-25 15:30 | NUR ---
ROUNDS PT SITTING UP IN BED, SON AT BEDSIDE. NO NEEDS AT THIS TIME. CALL LIGHT WITHIN REACH
--- NOTE | 2018-09-25 16:20 | NUR ---
PAIN MANAGEMENT PT C/O PAIN 9/10 TO RIGHT SHOULDER AND CHEST. GIVEN PAIN MEDICATION. CALL LIGHT WITHIN REACH. WILL FOLLOWUP
[2018-09-25] MEDS: MORPHINE 2 MG/ML INJ. SYRINGE IVP PRN (16:21)
--- NOTE | 2018-09-25 18:35 | NUR ---
CLOSING NOTE PT SITTING TO SIDE OF BED, DINNER TRAY IN FRONT OF HER. NO S/S OF ACUTE DISTRESS. NASAL CANULA IN PLACE. ALL NEEDS ATTENDED TO THROUGHOUT SHIFT. SAFETY PRECAUTIONS MAINTAINED. CALL LIGHT WITHIN REACH, WILL GIVE REPORT TO FOLLOWING SHIFT.
--- NOTE | 2018-09-25 19:00 | NUR ---
change of shift.pt.presents quiescent affect;calm.language barrier extant;georgian.pt.present fole catheter:2/t retention.o2 therapy via nasal cannulae.iv access lock;location;lt.hand.pt's activity status;oob/brp w/assist. nsg utilizing assist-device;walker.general status stable.respiratory status stable.call light/telephone w/in the pt's reach.
--- NOTE | 2018-09-25 19:50 | NUR ---
pt.assessed.v/s assessed;values w/in normal limits;o2-sat%=96% o2 therapy administered @2l/min via nasal cannulae. respiratory status stable;breathing pattern stable.un-labored.pt.had presented me the water pitcher requested water;warm.i have provided the water;warm.general status stable.yates catheter assessed;patent:urine content present;randal hue.call light/telephone placed w/in the pt's reach. Addendum: 09/26/18 at 0207 by Jabari Davis RN pt.capable to reposition self.
[2018-09-25] MEDS: IPRATROPIUM/ALBUTEROL SULFATE 3 ML AMPUL.NEB (DUONEB) INH PRN (20:09)
--- NOTE | 2018-09-25 20:45 | NUR ---
pt.assessed.pt.presents quiescent affect;calm,somnolent.per flacc method;pain mgx.pt.presents absent facial grimaces,body posturing.general status stable.respiratory status stable.call light/telephone w/in the pt's reach.
--- NOTE | 2018-09-25 21:15 | NUR ---
2100p medication administered;heparin 5ku sq:abdomen.no requests per the pt.@this hour.
--- NOTE | 2018-09-25 22:10 | NUR ---
pr.assessed.pt.presents quiescent affect;calm,somnolent.general status stable.respiratory status stable. yates catheter assessed;patent;urine content present;hue;randal.pt.capable to reposition self.call light/ telephone win the pt's reach.
[2018-09-26] MEDS: PIPERACILLIN/TAZO 3.375 GM in NS 50 ML IV SCH ×2 (00:25→06:07)
--- NOTE | 2018-09-26 00:25 | NUR ---
pt.assessed.v/s assessed;values w/in normal limits.per flacc method;pain mgx assessment;pt.absent facial grimaces/body posturing.i have administered the norco:5/25mg po 1 tab scheduled dose.i have administered the zosyn:abx;ivpb midnight dose.i have provided the pt.w/ blanket;warmed,socks;clean pair,water;warmed.no additional requests@this hour.pt.capable to reposition self.general status stable. respiratory status stable.call light/telephone placed w/in the pt's reach.
[2018-09-26] MEDS: HYDROcodone/ACETAMIN 5-325 MG TAB (NORCO/ VICODIN) PO SCH ×2 (00:27→06:10)
--- NOTE | 2018-09-26 02:10 | NUR ---
pt.assessed.pt.presents quiescent affect;calm,somnolent.general status stable.respiratory status stable. yates catheter assessed;patent;urine content present;hue;randal.pt.capable to reposition self.call light/telephone w/in the pt's reach.per flacc method;pain mgx;pt.absent facial grimaces/body posturing.
--- NOTE | 2018-09-26 04:15 | NUR ---
pt.assessed.pt.presents quiescent affect;calm,somnolent.general status stable.respiratory status stable. pt.capable to reposition self.yates catheter assessed;patent;urine content present;hue;randal.call light/ telephone w/in the pt's reach.
--- NOTE | 2018-09-26 06:15 | NUR ---
pt.assessed.pt.presents quiescent affect;calm,somnolent.general status stable.respiratory status stable. call light/telephone w/in the pt's reach.
--- NOTE | 2018-09-26 07:02 | NUR ---
pt./assessed.pt.has received the 0600a norco;5/325mg po dose.i have administered the zosyn;0600a;abx;ivpb dose. pt.capable to reposition self.call light/telephone w/i the pt's reach.general status stable.respiratory status stable.
[2018-09-26 07:06] VITALS: BP_SYST 139
[2018-09-26 08:00] VITALS: BP_SYST 139
--- NOTE | 2018-09-26 08:00 | NUR ---
Opening Note received report from brand director RN, pt resting in bed, A&Ox4, respirations even and unlabored on 2L nasal canula, pt denies any pain, no acute distress noted, IV site clean, dry, and intact, yates catheter draining to gravity, pt assisted to bathroom, steady gait noted, minimal assistance required, oral care completed, pt assisted back to bed, tolerated well, pt educated on use of call light and asked to call for assistance, pt verbalized understanding, call light in reach, bed in low position, bed alarm on, fall and aspiration precautions in place.
[2018-09-26] MEDS: HEPARIN SODIUM,PORCINE 5000 UNITS/ML VIAL SUBCUT SCH (08:46)
[2018-09-26] MEDS: amLODIPine BESYLATE 5 MG TABLET PO SCH (08:48)
--- NOTE | 2018-09-26 08:52 | NUR ---
Medication pt educated on medication use and side effects, understanding verbalized, pt tolerated medication administration well, no acute distress noted, fall and aspiration precautions in place.
[2018-09-26] MEDS ORDERED: HYDR-4272 PO (08:59)
--- NOTE | 2018-09-26 09:06 | NUR ---
D/C Yates, Room air orders to D/C yates catheter, blue phone used, technology sales representative Jian ID #[id number], pt educated on purpose and procedure of removing yates catheter, pt verbalized understanding, pt tolerated well, catheter intact, pt 96% on room air, pt informed of orders for discharge today, per pt she will call her son Siva, fall and aspiration precautions in place.
[2018-09-26 09:27] VITALS: BP_SYST 139
--- NOTE | 2018-09-26 09:30 | NUR ---
Physical Therapy pt ambulating with physical therapy, tolerating well, steady gait noted, minimal assistance required.
--- NOTE | 2018-09-26 09:55 | NUR ---
Voided pt ambulated to bathroom, voided, 100ml, clear, yellow, pt ambulated back to bed, fall and aspiration precautions in place.
--- NOTE | 2018-09-26 11:15 | NUR ---
Spoke with MD spoke with Dr. Ogden, received orders for amlodipine 5mg daily #30 for pt on discharge, prescription called and filled at [facility] , pt and pts son informed.
--- NOTE | 2018-09-26 11:30 | NUR ---
Voided pt ambulated to bathroom, voided x1, pt ambulated back to bed, fall and aspiration precautions in place.
--- NOTE | 2018-09-26 11:40 | NUR ---
Discharge orders to discharge pt home, discharge packet and instructions provided to pt and pts son, med rec completed, written prescription for norco provided, informed to follow up with PCP and oncologist, understanding verbalized, IV catheter removed, catheter intact, no bleeding, hospital ID band removed, tele monitor removed, no acute distress noted, pt stable for discharge, pts son Siva present for dischrage, all belongings sent with pt, pt taken to parking lot via wheelchair.
--- NOTE | 2018-09-29 16:00 | NUR ---
Discharge Follow Up Phone Call MINE ENGINEERING MANAGER phoned patient, , and spoke with patient's son, Siva. Siva stated that patient continues to not do well but has not worsened. Her insurance has changed over to [facility] and patient attended her follow up appointment with her new PCP, Dr Sánchez Mahmood, today. He will assure she is referred over to Dr Aguirre. Patient's son to phone Dr Aguirre's office today or tomorrow to assure follow up. No questions or concerns.
== END 2018-09-26 11:40 | disposition hospice, home (50) | DRG 178 ==
LOC: SED 20:37 → STU 22:27
PROVIDERS: ADMIT General Practice; ATTEND General Practice
DX: J69.0 Pneumonitis due to inhalation of food and vomit (principal); C18.9 Malignant neoplasm of colon, unspecified; K92.2 Gastrointestinal hemorrhage, unspecified; J91.0 Malignant pleural effusion; R65.10 Systemic inflammatory response syndrome (SIRS) of non-infectious origin without acute organ dysfunction; E87.6 Hypokalemia; I10 Essential (primary) hypertension; E78.5 Hyperlipidemia, unspecified; R09.02 Hypoxemia; E83.42 Hypomagnesemia; G51.0 Bell's palsy; M19.90 Unspecified osteoarthritis, unspecified site; Z79.899 Other long term (current) drug therapy; Z90.49 Acquired absence of other specified parts of digestive tract; Z92.21 Personal history of antineoplastic chemotherapy
CPT/HCPCS: 36415; 36600; 70450-TC; 71045; 71250-TC; 73030; 76604; 80048; 80053; 81003; 82150-TC; 82378; 82803-TC; 83036; 83605; 83690-TC; 83735-TC; 83880; 84484; 85025; 85610-TC; 85730-TC; 87040-TC; 87086; 92610-GN; 93005; 94640; 94760; 96365; 96375; 97110-GP; 97116-GP; 97530-GP; 99285; J1644; J1940; J1956; J2060; J2270; J2543; J7620